=== PATIENT | female | born 1935 | race Caucasian/White ===

== ENCOUNTER 2018-02-25 15:58 | Inpatient (IN) ==
[2018-02-25 17:12] LABS: Basophils % 0.3 % (0.0-0.8); Eosinophils % 0.1 % (0.00-10.9); Hematocrit 40.5 VOL% (35.7-47.0); Immature Granulocytes % 0.3 %; Immature Granulocytes Absolute 0.02 #; Lymphocytes # 0.6 10*3/uL (1.4-4.0); Lymphocytes % 7.9 % (21.3-54.2); Mean Corpuscular HGB Conc 34.6 GM/DL (32-36); Mean Corpuscular Hemoglobin 33 PG (27-34); Mean Corpuscular Volume 96.7 FL (87-102); Mean Platelet Volume 9.9 FL (9.6-12.0); Monocytes # 0.7 10*3/uL (0.11-0.8); Monocytes % 8.6 % (1.7-12.7); Neutrophils # 6.6 10*3/uL (1.4-7.4); Neutrophils % 82.8 % (38.7-73.9); Platelet Count 123 T/CUMM (130-400); Red Blood Count 4.19 MC/CUMM (3.8-5.5); Red Cell Distribution Width 11.9 % (9.3-17.3)
[2018-02-25 17:25] LABS: PT Patient Result 10.2 SECS
[2018-02-25 17:36] LABS: Albumin 3.2 G/DL (3.4-5.0); Bilirubin,Total 0.5 MG/DL (0.2-1.0); Calcium 9.4 MG/DL (8.5-10.1); Osmolality,Calculated 275.7 MOS/KG (273-304); Potassium 3.5 MMOL/L (3.5-5.1)
[2018-02-25 17:47] LABS: Band Neutrophils 9 % (0-10); Lymphocytes 9 % (20-55); Platelet Estimate Adequate; Segmented Neutrophils 69 % (50-85); Total Cells Counted 100
[2018-02-25 17:59] LABS: Apearance,Urine Slightly Hazy (Clear); Bilirubin,Urine Negative (Negative); Blood, Urine Negative (Negative); Glucose,Urine (UA) Negative (Negative); Ketones,Urine 20 mg/dL (Negative); Mucus,Urine Occasional /LPF (Occasional); Nitrite,Urine Negative (Negative); Protein,Urine 100 MG/DL; RBC,Urine 3 /HPF (0-4); Urine Color Amber (Yellow); Urine Specific Gravity 1.023 (1.001-1.035); Urine Urobilinogen < 2.0 EU/DL (0.2-1.0); WBC,Urine 1 /HPF (0-6)
[2018-02-26 05:13] LABS: Basophils % 0.3 % (0.0-0.8); Eosinophils % 0.1 % (0.00-10.9); Hematocrit 35.5 VOL% (35.7-47.0); Hemoglobin 12.4 GM/DL (12.0-16.0); Immature Granulocytes % 0.1 %; Immature Granulocytes Absolute 0.01 #; Lymphocytes # 0.7 10*3/uL (1.4-4.0); Lymphocytes % 7.7 % (21.3-54.2); Mean Corpuscular HGB Conc 34.9 GM/DL (32-36); Mean Corpuscular Hemoglobin 33 PG (27-34); Mean Corpuscular Volume 94.4 FL (87-102); Mean Platelet Volume 10.2 FL (9.6-12.0); Monocytes # 0.9 10*3/uL (0.11-0.8); Monocytes % 9.7 % (1.7-12.7); Neutrophils # 7.3 10*3/uL (1.4-7.4); Neutrophils % 82.1 % (38.7-73.9); Platelet Count 128 T/CUMM (130-400); Red Blood Count 3.76 MC/CUMM (3.8-5.5); White Blood Count 8.8 T/CUMM (4-12)
[2018-02-26 05:35] LABS: Calcium 8.4 MG/DL (8.5-10.1); Osmolality,Calculated 272.8 MOS/KG (273-304); Potassium 2.9 MMOL/L (3.5-5.1)
[2018-02-26 05:45] LABS: Band Neutrophils 9 % (0-10); Hypochromasia 1+; Lymphocytes 10 % (20-55); Ovalocytes Slight; Platelet Estimate Normal; Segmented Neutrophils 73 % (50-85); Total Cells Counted 100
[2018-02-27 05:53] LABS: Basophils % 0.2 % (0.0-0.8); Eosinophils % 0.8 % (0.00-10.9); Hematocrit 33.1 VOL% (35.7-47.0); Hemoglobin 11.8 GM/DL (12.0-16.0); Immature Granulocytes % 0.4 %; Immature Granulocytes Absolute 0.02 #; Lymphocytes # 0.9 10*3/uL (1.4-4.0); Lymphocytes % 17.5 % (21.3-54.2); Mean Corpuscular HGB Conc 35.6 GM/DL (32-36); Mean Corpuscular Hemoglobin 34 PG (27-34); Mean Platelet Volume 10.1 FL (9.6-12.0); Monocytes # 0.5 10*3/uL (0.11-0.8); Monocytes % 10.5 % (1.7-12.7); Neutrophils # 3.6 10*3/uL (1.4-7.4); Neutrophils % 70.6 % (38.7-73.9); Platelet Count 135 T/CUMM (130-400); Red Blood Count 3.52 MC/CUMM (3.8-5.5)
[2018-02-27 06:14] LABS: Albumin 2.6 G/DL (3.4-5.0); Bilirubin,Total 0.4 MG/DL (0.2-1.0); Calcium 8.3 MG/DL (8.5-10.1); Osmolality,Calculated 278.3 MOS/KG (273-304); Potassium 3.6 MMOL/L (3.5-5.1); Total Protein 5.6 G/DL (6.4-8.3)
[2018-02-27 09:35] VITALS: BP 109/53
== END 2018-02-27 11:45 | disposition home or self-care (01) | DRG 566 ==
LOC: EDBD → EDUNIT# → N.ED 15:58 → N.EDINP 19:27 → N.4E 20:54
PROVIDERS: ADMIT Internal Medicine; ATTEND Internal Medicine

== ENCOUNTER 2019-04-08 18:38 | Inpatient (IN) ==
[2019-04-08 19:23] LABS: Basophils % 0.1 % (0.0-0.8); Hematocrit 22.8 VOL% (35.7-47.0); Hemoglobin 7.2 GM/DL (12.0-16.0); Immature Granulocytes % 0.1 %; Immature Granulocytes Absolute 0.01 #; Lymphocytes # 0.5 10*3/uL (1.4-4.0); Lymphocytes % 7.1 % (21.3-54.2); Mean Corpuscular HGB Conc 31.6 GM/DL (32-36); Mean Platelet Volume 9.8 FL (9.6-12.0); Monocytes % 5.6 % (1.7-12.7); Neutrophils % 87.1 % (38.7-73.9); Platelet Count 149 T/CUMM (130-400); Red Blood Count 2.28 MC/CUMM (3.8-5.5); Red Cell Distribution Width 12.4 % (9.3-17.3); White Blood Count 7.4 T/CUMM (4-12)
[2019-04-08 19:42] LABS: INR 1.3; PT Patient Result 14.3 SECS (9.6-12.2)
[2019-04-08 21:45] LABS: Calcium 9.1 MG/DL (8.5-10.1)
[2019-04-08 21:47] LABS: Albumin 2.8 G/DL (3.4-5.0); Osmolality,Calculated 281.3 MOS/KG (273-304)
[2019-04-08 21:50] LABS: Apearance,Urine CLEAR (Clear); Bilirubin,Urine Negative (Negative); Blood, Urine Negative (Negative); Glucose,Urine (UA) Negative (Negative); Ketones,Urine 80 mg/dL (Negative); Mucus,Urine Occasional /LPF (Occasional); Nitrite,Urine Negative (Negative); Protein,Urine 30 MG/DL; RBC,Urine 4 /HPF (0-4); Squamous Epithelial Cell,Urine Occasional /HPF (0-10); Urine Color Yellow (Yellow); Urine Specific Gravity 1.018 (1.001-1.035); Urine Urobilinogen < 2.0 EU/DL (0.2-1.0); WBC,Urine 3 /HPF (0-6)
[2019-04-08 21:51] LABS: Bilirubin,Total 0.4 MG/DL (0.2-1.0)
[2019-04-09] MEDS ORDERED: BISACODYL 5 MG TABLET PO PRN (00:10)
[2019-04-09] MEDS ORDERED: ONDANSETRON 4 MG/2 ML VIAL IV PRN (00:10)
[2019-04-09] MEDS ORDERED: guaiFENesin/DM ER 600-30 MG TABLET PO PRN (00:10)
[2019-04-09] MEDS ORDERED: diphenhydrAMINE CAP 25 MG CAPSULE PO PRN (00:10)
[2019-04-09] MEDS ORDERED: SODIUM CHLORIDE 0.9% 1,000 ML IV PRN (00:10)
[2019-04-09] MEDS ORDERED: NICOTINE 21 MG/24 HR PATCH TRANSDERM PRN (00:10)
[2019-04-09] MEDS: SODIUM CHLORIDE 0.9% 1,000 ML IV SCH ×3 (03:06→16:08)
[2019-04-09] MEDS: FAMOTIDINE 20 MG/2 ML VIAL IV SCH ×3 (03:07→22:18)
[2019-04-09] MEDS: ACETAMINOPHEN 325 MG TABLET PO PRN (03:11)
[2019-04-09] MEDS ORDERED: LIOTHYRONINE 25 MCG TABLET PO SCH (06:30)
[2019-04-09] MEDS ORDERED: LEVOTHYROXINE 137 MCG TABLET PO SCH (06:30)
[2019-04-09] MEDS: SOTALOL 80 MG TABLET PO SCH ×2 (09:39→22:19)
[2019-04-09] MEDS: PROPRANOLOL 40 MG TABLET PO SCH (09:39)
[2019-04-09] MEDS: ENOXAPARIN 40 MG/0.4 ML SYRINGE SUBCUT SCH ×2 (09:39→10:45)
[2019-04-09] MEDS: carBAMazepine 200 MG TABLET PO SCH ×2 (09:59→18:21)
[2019-04-09 10:00] LABS: Basophils % 0.2 % (0.0-0.8); Eosinophils % 0.4 % (0.00-10.9); Hematocrit 36.5 VOL% (35.7-47.0); Immature Granulocytes % 0.4 %; Immature Granulocytes Absolute 0.04 #; Lymphocytes # 1.1 10*3/uL (1.4-4.0); Lymphocytes % 12.4 % (21.3-54.2); Mean Corpuscular HGB Conc 33.2 GM/DL (32-36); Mean Corpuscular Volume 97.3 FL (87-102); Mean Platelet Volume 10.1 FL (9.6-12.0); Neutrophils % 78.6 % (38.7-73.9); Red Cell Distribution Width 13.2 % (9.3-17.3)
[2019-04-09 10:04] LABS: Red Blood Count 3.75 MC/CUMM (3.8-5.5)
[2019-04-09 10:05] LABS: Hemoglobin 12.1 GM/DL (12.0-16.0)
[2019-04-09 10:06] LABS: Platelet Count 213 T/CUMM (130-400)
[2019-04-09 10:27] LABS: % Iron Saturation 37.8 % (18-50); Ferritin 171.5 ng/ml (8-252)
[2019-04-09 10:29] LABS: Free T4 (Free Thyroxine) 1.44 NG/DL (0.76-1.46)
[2019-04-09] MEDS ORDERED: INFLUENZA VIRUS VACCINE 0.5 ML SYRINGE IM ONE (10:30)
[2019-04-09 10:34] LABS: Albumin 2.5 G/DL (3.4-5.0); Bilirubin,Total 0.6 MG/DL (0.2-1.0); Calcium 8.6 MG/DL (8.5-10.1); Osmolality,Calculated 283.1 MOS/KG (273-304); Total Protein 6.4 G/DL (6.4-8.3)
[2019-04-09 10:36] LABS: Troponin I 0.189 NG/ML (0.00-0.045)
[2019-04-09] MEDS: POTASSIUM CHLORIDE RIDER 10 MEQ in PREMIX 1 EACH IV PRN ×5 (10:44→23:31)
[2019-04-09 11:03] LABS: Sedimentation Rate-Westergren 90 MM/HR (0-30)
[2019-04-09 13:18] LABS: Hemoglobin 13.3 GM/DL (12.0-16.0)
[2019-04-09 17:20] LABS: Troponin I 0.228 NG/ML (0.00-0.045)
[2019-04-09] MEDS: cycloSPORINE OPH EMUL 1 VIAL BOTH EYES SCH (22:19)
[2019-04-09] MEDS: SIMVASTATIN 40 MG TABLET PO SCH (22:19)
[2019-04-09] MEDS: PANTOPRAZOLE 40 MG TABLET PO SCH (22:19)
[2019-04-09] MEDS: AMITRIPTYLINE 100 MG TABLET PO SCH (22:25)
[2019-04-10] MEDS: POTASSIUM CHLORIDE RIDER 10 MEQ in PREMIX 1 EACH IV PRN ×2 (00:32→08:17)
[2019-04-10 06:16] LABS: Basophils % 0.3 % (0.0-0.8); Eosinophils # 0.1 10*3/uL (0.0-0.87); Hematocrit 38.4 VOL% (35.7-47.0); Hemoglobin 12.6 GM/DL (12.0-16.0); Immature Granulocytes % 0.4 %; Immature Granulocytes Absolute 0.04 #; Lymphocytes # 1.1 10*3/uL (1.4-4.0); Lymphocytes % 11.1 % (21.3-54.2); Mean Corpuscular HGB Conc 32.8 GM/DL (32-36); Mean Corpuscular Volume 94.3 FL (87-102); Mean Platelet Volume 11.3 FL (9.6-12.0); Monocytes % 9.9 % (1.7-12.7); Neutrophils % 77.3 % (38.7-73.9); Platelet Count 221 T/CUMM (130-400); Red Blood Count 4.07 MC/CUMM (3.8-5.5); Red Cell Distribution Width 14.1 % (9.3-17.3); White Blood Count 9.9 T/CUMM (4-12)
[2019-04-10 06:39] LABS: Albumin 2.4 G/DL (3.4-5.0); Bilirubin,Total 0.9 MG/DL (0.2-1.0); Calcium 8.8 MG/DL (8.5-10.1); Total Protein 6.2 G/DL (6.4-8.3)
[2019-04-10 07:15] LABS: Troponin I 0.276 NG/ML (0.00-0.045)
[2019-04-10 07:19] LABS: Hemoglobin A1 (Alkaline) 97.1 % (96.5-98.5); Hemoglobin A2 (Alkaline) 2.9 % (1.5-3.5)
[2019-04-10] MEDS: FAMOTIDINE 20 MG/2 ML VIAL IV SCH ×2 (08:15→20:25)
[2019-04-10] MEDS: cycloSPORINE OPH EMUL 1 VIAL BOTH EYES SCH ×2 (08:15→20:35)
[2019-04-10] MEDS: carBAMazepine 200 MG TABLET PO SCH ×2 (08:16→18:54)
[2019-04-10] MEDS: PANTOPRAZOLE 40 MG TABLET PO SCH ×2 (08:16→20:25)
[2019-04-10] MEDS: PROPRANOLOL 40 MG TABLET PO SCH (08:16)
[2019-04-10] MEDS: SOTALOL 80 MG TABLET PO SCH ×2 (08:16→20:24)
[2019-04-10] MEDS: SODIUM CHLORIDE 0.9% 1,000 ML IV SCH ×3 (10:46→17:35)
[2019-04-10] MEDS ORDERED: TUBERCULIN SKIN TEST 0.1 ML SYRINGE INTRADERM ONE (15:47)
[2019-04-10 16:58] LABS: Folate 10.2 NG/ML (5.4-24.0); Vitamin B12 1015 PG/ML (211-911)
[2019-04-10] MEDS: ACETAMINOPHEN 325 MG TABLET PO PRN (20:23)
[2019-04-10] MEDS: SIMVASTATIN 40 MG TABLET PO SCH (20:25)
[2019-04-10] MEDS: AMITRIPTYLINE 100 MG TABLET PO SCH (20:25)
[2019-04-11 05:20] LABS: Basophils % 0.3 % (0.0-0.8); Eosinophils # 0.2 10*3/uL (0.0-0.87); Eosinophils % 2.6 % (0.00-10.9); Hematocrit 35.2 VOL% (35.7-47.0); Hemoglobin 11.4 GM/DL (12.0-16.0); Immature Granulocytes % 0.4 %; Immature Granulocytes Absolute 0.03 #; Lymphocytes # 1.3 10*3/uL (1.4-4.0); Lymphocytes % 18.6 % (21.3-54.2); Mean Corpuscular HGB Conc 32.4 GM/DL (32-36); Mean Corpuscular Volume 94.6 FL (87-102); Mean Platelet Volume 10.2 FL (9.6-12.0); Monocytes % 11.7 % (1.7-12.7); Neutrophils % 66.4 % (38.7-73.9); Platelet Count 190 T/CUMM (130-400); Red Blood Count 3.72 MC/CUMM (3.8-5.5); Red Cell Distribution Width 13.3 % (9.3-17.3); White Blood Count 6.9 T/CUMM (4-12)
[2019-04-11 05:42] LABS: Calcium 8.2 MG/DL (8.5-10.1); Osmolality,Calculated 282.1 MOS/KG (273-304)
[2019-04-11] MEDS: SOTALOL 80 MG TABLET PO SCH ×2 (11:35→20:57)
[2019-04-11] MEDS: PROPRANOLOL 40 MG TABLET PO SCH (11:35)
[2019-04-11] MEDS: PANTOPRAZOLE 40 MG TABLET PO SCH ×2 (11:35→20:58)
[2019-04-11] MEDS: carBAMazepine 200 MG TABLET PO SCH ×2 (11:36→20:57)
[2019-04-11] MEDS: FAMOTIDINE 20 MG/2 ML VIAL IV SCH ×2 (11:37→21:03)
[2019-04-11 12:19] LABS: Hematocrit 38.8 VOL% (35.7-47.0); Hemoglobin 12.8 GM/DL (12.0-16.0)
[2019-04-11] MEDS: AMITRIPTYLINE 100 MG TABLET PO SCH (20:58)
[2019-04-11] MEDS: SIMVASTATIN 40 MG TABLET PO SCH (20:58)
[2019-04-12] MEDS: SODIUM CHLORIDE 0.9% 1,000 ML IV SCH ×2 (07:20→10:39)
[2019-04-12] MEDS: PANTOPRAZOLE 40 MG TABLET PO SCH ×2 (09:23→21:12)
[2019-04-12] MEDS: FAMOTIDINE 20 MG/2 ML VIAL IV SCH (09:23)
[2019-04-12] MEDS: carBAMazepine 200 MG TABLET PO SCH ×2 (09:23→21:12)
[2019-04-12] MEDS: PROPRANOLOL 40 MG TABLET PO SCH (09:23)
[2019-04-12] MEDS: SOTALOL 80 MG TABLET PO SCH ×2 (09:23→21:12)
[2019-04-12] MEDS: AMITRIPTYLINE 100 MG TABLET PO SCH (21:12)
[2019-04-12] MEDS: SIMVASTATIN 40 MG TABLET PO SCH (21:12)
[2019-04-12] MEDS: cycloSPORINE OPH EMUL 1 VIAL BOTH EYES SCH (21:13)
[2019-04-13 05:57] LABS: Basophils % 0.3 % (0.0-0.8); Eosinophils # 0.1 10*3/uL (0.0-0.87); Eosinophils % 1.7 % (0.00-10.9); Hematocrit 38.3 VOL% (35.7-47.0); Hemoglobin 12.4 GM/DL (12.0-16.0); Immature Granulocytes % 0.5 %; Immature Granulocytes Absolute 0.04 #; Lymphocytes # 1.2 10*3/uL (1.4-4.0); Lymphocytes % 15.4 % (21.3-54.2); Mean Corpuscular HGB Conc 32.4 GM/DL (32-36); Mean Platelet Volume 9.5 FL (9.6-12.0); Monocytes % 13.3 % (1.7-12.7); Neutrophils % 68.8 % (38.7-73.9); Platelet Count 195 T/CUMM (130-400); Red Blood Count 3.99 MC/CUMM (3.8-5.5); Red Cell Distribution Width 12.7 % (9.3-17.3); White Blood Count 7.6 T/CUMM (4-12)
[2019-04-13] MEDS: SOTALOL 80 MG TABLET PO SCH ×2 (08:54→21:25)
[2019-04-13] MEDS: PROPRANOLOL 40 MG TABLET PO SCH (08:54)
[2019-04-13] MEDS: PANTOPRAZOLE 40 MG TABLET PO SCH ×2 (08:54→21:26)
[2019-04-13] MEDS: carBAMazepine 200 MG TABLET PO SCH ×2 (08:54→21:25)
[2019-04-13] MEDS: METHOCARBAMOL 500 MG TABLET PO SCH ×3 (08:55→21:25)
[2019-04-13] MEDS: cycloSPORINE OPH EMUL 1 VIAL BOTH EYES SCH ×2 (08:55→21:27)
[2019-04-13] MEDS: DICLOFENAC 1% GEL 100 GM TUBE TOP SCH ×4 (15:39→21:27)
[2019-04-13] MEDS ORDERED: MIRTAZAPINE 15 MG TABLET PO SCH (21:00)
[2019-04-13] MEDS: SIMVASTATIN 40 MG TABLET PO SCH (21:26)
[2019-04-13] MEDS: AMITRIPTYLINE 100 MG TABLET PO SCH (21:26)
[2019-04-14] MEDS: carBAMazepine 200 MG TABLET PO SCH (08:56)
[2019-04-14] MEDS: PANTOPRAZOLE 40 MG TABLET PO SCH (08:56)
[2019-04-14] MEDS: SOTALOL 80 MG TABLET PO SCH (08:57)
[2019-04-14] MEDS: PROPRANOLOL 40 MG TABLET PO SCH (08:57)
[2019-04-14] MEDS: METHOCARBAMOL 500 MG TABLET PO SCH (08:57)
[2019-04-14] MEDS: DICLOFENAC 1% GEL 100 GM TUBE TOP SCH ×2 (09:04→12:43)
[2019-04-14] MEDS: cycloSPORINE OPH EMUL 1 VIAL BOTH EYES SCH (09:05)
[2019-04-14 11:57] VITALS: BP 103/54
== END 2019-04-14 14:01 | disposition swing bed (61) | DRG 644 ==
LOC: EDUNIT# → EDBD → N.EDINP 18:38 → N.ED 18:38 → N.TELES 04-09 01:14 → SUATTDRO 04-09 13:44 → N.5E 04-12 11:11
PROVIDERS: ADMIT Internal Medicine; ATTEND Internal Medicine

== ENCOUNTER 2020-09-25 09:56 | Observation (INO) ==
[2020-09-25] MEDS ORDERED: NITROGLYCERIN SL 0.4 MG TABLET SL PRN (10:23)
[2020-09-25] MEDS ORDERED: ASPIRIN 325 MG TABLET PO STA (10:23)
[2020-09-25] MEDS ORDERED: ASPIRIN 325 MG TABLET ONE (10:26)
[2020-09-25 11:00] LABS: Basophils % 0.4 % (0.0-0.8); Eosinophils % 1.7 % (0.00-10.9); Hematocrit 36.1 VOL% (35.7-47.0); Hemoglobin 11.6 GM/DL (12.0-16.0); Immature Granulocytes % 0.3 %; Mean Corpuscular HGB Conc 32.1 GM/DL (32-36); Mean Platelet Volume 9.6 FL (9.6-12.0); Monocytes % 7.2 % (1.7-12.7); Neutrophils % 76.4 % (38.7-73.9); Platelet Count 239 T/CUMM (130-400); Red Blood Count 3.76 MC/CUMM (3.8-5.5); Red Cell Distribution Width 12.6 % (9.3-17.3); White Blood Count 7.8 T/CUMM (4-12)
[2020-09-25 11:01] LABS: Eosinophils # 0.1 10*3/uL (0.0-0.87); Immature Granulocytes Absolute 0.02 #; Lymphocytes # 1.1 10*3/uL (1.4-4.0)
[2020-09-25 11:15] LABS: PT Patient Result 10.9 SECS (9.8-11.9); Partial Thromboplastin Time 24.5 SECS (23.9-33.8)
[2020-09-25 11:20] LABS: Calcium 9.2 MG/DL (8.5-10.1); Osmolality,Calculated 278.7 MOS/KG (273-304); Potassium 4.4 MMOL/L (3.5-5.1)
[2020-09-25] MEDS ORDERED: DEXTROSE 50% 25 GM/50 ML VIAL IV PRN (13:30)
[2020-09-25] MEDS ORDERED: GLUCAGON 1 MG VIAL IM PRN (13:30)
[2020-09-25] MEDS ORDERED: hydrALAZINE 20 MG/1 ML VIAL IV PRN (14:18)
[2020-09-25] MEDS ORDERED: PANTOPRAZOLE 20 MG TABLET PO SCH (14:30)
[2020-09-25] MEDS: ENOXAPARIN 40 MG/0.4 ML SYRINGE SUBCUT SCH (15:42)
[2020-09-25] MEDS: SOTALOL 80 MG TABLET PO SCH ×2 (15:42→21:10)
[2020-09-25] MEDS: LOSARTAN 25 MG TABLET PO SCH (15:42)
[2020-09-25] MEDS ORDERED: carBAMazepine 200 MG TABLET PO SCH ×2 (19:00→21:00)
[2020-09-25] MEDS ORDERED: SIMVASTATIN 40 MG TABLET PO SCH (21:00)
[2020-09-25] MEDS ORDERED: AMITRIPTYLINE 50 MG TABLET PO SCH (21:00)
[2020-09-25] MEDS: PANTOPRAZOLE 40 MG TABLET PO SCH (21:11)
[2020-09-25] MEDS: cycloSPORINE OPH EMUL 1 VIAL BOTH EYES SCH (21:12)
[2020-09-26] MEDS ORDERED: diphenhydrAMINE CAP 25 MG CAPSULE PO ONE (04:51)
[2020-09-26 05:09] LABS: Free T4 (Free Thyroxine) 1.66 NG/DL (0.76-1.46)
[2020-09-26 05:41] LABS: Basophils % 0.5 % (0.0-0.8); Eosinophils # 0.1 10*3/uL (0.0-0.87); Eosinophils % 1.8 % (0.00-10.9); Hematocrit 33.5 VOL% (35.7-47.0); Hemoglobin 10.9 GM/DL (12.0-16.0); Immature Granulocytes % 0.3 %; Immature Granulocytes Absolute 0.02 #; Lymphocytes # 1.6 10*3/uL (1.4-4.0); Lymphocytes % 23.4 % (21.3-54.2); Mean Corpuscular HGB Conc 32.5 GM/DL (32-36); Mean Corpuscular Volume 95.7 FL (87-102); Mean Platelet Volume 10.7 FL (9.6-12.0); Monocytes % 10.6 % (1.7-12.7); Neutrophils % 63.4 % (38.7-73.9); Platelet Count 222 T/CUMM (130-400); Red Cell Distribution Width 12.9 % (9.3-17.3); White Blood Count 6.6 T/CUMM (4-12)
[2020-09-26 05:54] LABS: Risk Ratio 2.61; VLDL CHOLESTEROL 27.2 MG/DL
[2020-09-26 05:55] LABS: Albumin 2.8 G/DL (3.4-5.0); Bilirubin,Total 0.4 MG/DL (0.2-1.0); Calcium 9.1 MG/DL (8.5-10.1); Osmolality,Calculated 281.3 MOS/KG (273-304); Potassium 3.7 MMOL/L (3.5-5.1); Total Protein 6.7 G/DL (5.0-7.5)
[2020-09-26] MEDS ORDERED: LEVOTHYROXINE 125 MCG TABLET PO SCH (07:00)
[2020-09-26] MEDS: cycloSPORINE OPH EMUL 1 VIAL BOTH EYES SCH (09:00)
[2020-09-26] MEDS ORDERED: PROPRANOLOL 20 MG TABLET PO SCH (09:00)
[2020-09-26] MEDS ORDERED: CALCIUM (CARBONATE) 600 MG TABLET PO SCH (09:00)
[2020-09-26] MEDS: LOSARTAN 25 MG TABLET PO SCH (09:00)
[2020-09-26] MEDS ORDERED: carBAMazepine 200 MG TABLET PO SCH (09:00)
[2020-09-26] MEDS: SOTALOL 80 MG TABLET PO SCH (09:00)
[2020-09-26] MEDS ORDERED: ASPIRIN CHEW 81 MG TABLET PO SCH (09:00)
[2020-09-26] MEDS: PANTOPRAZOLE 40 MG TABLET PO SCH (09:01)
[2020-09-26 11:51] VITALS: BP 135/61
[2020-09-26] MEDS: ENOXAPARIN 40 MG/0.4 ML SYRINGE SUBCUT SCH (13:21)
== END 2020-09-26 14:33 | disposition home or self-care (01) ==
LOC: EDUNIT# → EDBD → N.ED 09:56 → N.EDINP 09:56 → N.TELES 13:49
PROVIDERS: ADMIT Internal Medicine; ATTEND Internal Medicine

== ENCOUNTER 2020-12-06 10:20 | Inpatient (IN) ==
[2020-12-06 13:09] LABS: Bilirubin,Urine Negative (Negative); Blood, Urine Negative (Negative); Glucose,Urine (UA) Negative (Negative); Ketones,Urine 80 mg/dL (Negative); Mucus,Urine Few /LPF (Occasional); Nitrite,Urine Negative (Negative); Protein,Urine 30 MG/DL; RBC,Urine 2 /HPF (0-4); Squamous Epithelial Cell,Urine Occasional /HPF (0-10); Urine Appearance CLEAR (Clear); Urine Color Yellow (Yellow); Urine Specific Gravity 1.025 (1.001-1.035); Urine Urobilinogen < 2.0 EU/DL (0.2-1.0)
[2020-12-06 13:26] LABS: Basophils % 0.2 % (0.0-0.8); Eosinophils % 0.2 % (0.00-10.9); Hematocrit 30.4 VOL% (35.7-47.0); Immature Granulocytes % 0.6 %; Immature Granulocytes Absolute 0.11 #; Lymphocytes # 1.5 10*3/uL (1.4-4.0); Lymphocytes % 8.3 % (21.3-54.2); Mean Corpuscular HGB Conc 32.9 GM/DL (32-36); Mean Corpuscular Volume 95.6 FL (87-102); Mean Platelet Volume 9.4 FL (9.6-12.0); Monocytes % 7.2 % (1.7-12.7); Neutrophils % 83.5 % (38.7-73.9); Platelet Count 320 T/CUMM (130-400); Red Blood Count 3.18 MC/CUMM (3.8-5.5); Red Cell Distribution Width 12.9 % (9.3-17.3); White Blood Count 17.9 T/CUMM (4-12)
[2020-12-06 13:44] LABS: Alanine Aminotransferase 13 U/L (13-56); Albumin 2.4 G/DL (3.4-5.0); Alkaline Phosphatase 30 U/L (45-117); Aspartate Amino Transferase 14 U/L (0-37); Bilirubin,Total < 0.39 MG/DL (0.2-1.0); Blood Urea Nitrogen 11 MG/DL (7-18); Calcium 9.5 MG/DL (8.5-10.1); Carbon Dioxide 26 MMOL/L (21-32); Estimated Glom Filtration Rate 81 ML/MIN; Glucose 111 MG/DL (74-106); Osmolality,Calculated 272.8 MOS/KG (273-304); Sodium 137 MMOL/L (136-145); Total Protein 7.1 G/DL (6.4-8.2)
[2020-12-06] MEDS ORDERED: cefTRIAXone 1,000 MG in SODIUM CHLORIDE 0.9% 100 ML IV STA (13:52)
[2020-12-06] MEDS ORDERED: ONDANSETRON 4 MG/2 ML VIAL IV PRN (14:54)
[2020-12-06] MEDS ORDERED: GLUCAGON 1 MG VIAL IM PRN (14:54)
[2020-12-06] MEDS ORDERED: DEXTROSE 50% 25 GM/50 ML VIAL IV PRN (14:54)
[2020-12-06] MEDS ORDERED: tiZANidine 4 MG TABLET PO PRN (15:01)
[2020-12-06] MEDS: cefTRIAXone 1,000 MG in SODIUM CHLORIDE 0.9% 100 ML IV SCH (16:07)
[2020-12-06] MEDS: AZITHROMYCIN INJ 500 MG in SODIUM CHLORIDE 0.9% 250 ML IV SCH (16:08)
[2020-12-06] MEDS: ASPIRIN CHEW 81 MG TABLET PO SCH (16:14)
[2020-12-06] MEDS: PANTOPRAZOLE 40 MG TABLET PO SCH (16:15)
[2020-12-06] MEDS: ALBUTEROL/IPRATROPIUM 3 ML NEB RESP TX SCH (19:39)
[2020-12-06] MEDS: cycloSPORINE OPH EMUL 1 VIAL BOTH EYES SCH (20:51)
[2020-12-06] MEDS: carBAMazepine 200 MG TABLET PO SCH (20:51)
[2020-12-06] MEDS: SIMVASTATIN 40 MG TABLET PO SCH (20:51)
[2020-12-06] MEDS: SOTALOL 80 MG TABLET PO SCH (20:51)
[2020-12-06] MEDS: TOPIRAMATE 25 MG TABLET PO SCH (20:51)
[2020-12-06] MEDS: AMITRIPTYLINE 50 MG TABLET PO SCH (20:51)
[2020-12-06] MEDS: SODIUM CHLORIDE 0.45% 1,000 ML IV SCH (20:55)
[2020-12-07] MEDS: ALBUTEROL/IPRATROPIUM 3 ML NEB RESP TX SCH ×4 (00:12→20:48)
[2020-12-07] MEDS: SODIUM CHLORIDE 0.45% 1,000 ML IV SCH ×3 (00:53→08:52)
[2020-12-07 05:51] LABS: Basophils % 0.1 % (0.0-0.8); Eosinophils # 0.1 10*3/uL (0.0-0.87); Eosinophils % 0.3 % (0.00-10.9); Hematocrit 29.2 VOL% (35.7-47.0); Hemoglobin 9.8 GM/DL (12.0-16.0); Immature Granulocytes % 0.6 %; Immature Granulocytes Absolute 0.09 #; Lymphocytes # 1.2 10*3/uL (1.4-4.0); Lymphocytes % 7.7 % (21.3-54.2); Mean Corpuscular HGB Conc 33.6 GM/DL (32-36); Mean Corpuscular Volume 93.9 FL (87-102); Monocytes % 9.1 % (1.7-12.7); Neutrophils % 82.2 % (38.7-73.9); Platelet Count 294 T/CUMM (130-400); Red Blood Count 3.11 MC/CUMM (3.8-5.5); Red Cell Distribution Width 13.1 % (9.3-17.3); White Blood Count 15.8 T/CUMM (4-12)
[2020-12-07] MEDS: IBUPROFEN 600 MG TABLET PO PRN ×2 (06:07→17:47)
[2020-12-07 06:39] LABS: Blood Urea Nitrogen 7 MG/DL (7-18); Carbon Dioxide 25 MMOL/L (21-32); Estimated Glom Filtration Rate 86 ML/MIN; Glucose 94 MG/DL (74-106); Potassium 3.6 MMOL/L (3.5-5.1); Sodium 136 MMOL/L (136-145); Thyroid Stimulating Hormone < 0.005 uIU/ml (0.358-3.74)
[2020-12-07] MEDS ORDERED: LEVOTHYROXINE 137 MCG TABLET PO SCH (07:00)
[2020-12-07] MEDS: TOPIRAMATE 25 MG TABLET PO SCH ×2 (08:31→21:47)
[2020-12-07] MEDS: carBAMazepine 200 MG TABLET PO SCH ×2 (08:31→21:47)
[2020-12-07] MEDS: LIOTHYRONINE 25 MCG TABLET PO SCH (08:35)
[2020-12-07] MEDS: ASPIRIN CHEW 81 MG TABLET PO SCH (08:36)
[2020-12-07] MEDS: cycloSPORINE OPH EMUL 1 VIAL BOTH EYES SCH ×2 (08:36→21:48)
[2020-12-07] MEDS: cefTRIAXone 1,000 MG in SODIUM CHLORIDE 0.9% 100 ML IV SCH (08:36)
[2020-12-07] MEDS: SOTALOL 80 MG TABLET PO SCH ×2 (08:36→21:47)
[2020-12-07] MEDS: PANTOPRAZOLE 40 MG TABLET PO SCH (08:36)
[2020-12-07] MEDS: AZITHROMYCIN INJ 500 MG in SODIUM CHLORIDE 0.9% 250 ML IV SCH (15:21)
[2020-12-07] MEDS: AMITRIPTYLINE 50 MG TABLET PO SCH (21:47)
[2020-12-07] MEDS: SIMVASTATIN 40 MG TABLET PO SCH (21:47)
[2020-12-07] MEDS: ACETAMINOPHEN 325 MG TABLET PO PRN (21:55)
[2020-12-08] MEDS: ALBUTEROL/IPRATROPIUM 3 ML NEB RESP TX SCH ×4 (01:40→20:22)
[2020-12-08 05:20] LABS: Basophils % 0.2 % (0.0-0.8); Eosinophils # 0.1 10*3/uL (0.0-0.87); Eosinophils % 1.2 % (0.00-10.9); Hematocrit 27.3 VOL% (35.7-47.0); Hemoglobin 9.1 GM/DL (12.0-16.0); Immature Granulocytes % 0.5 %; Immature Granulocytes Absolute 0.05 #; Lymphocytes # 0.7 10*3/uL (1.4-4.0); Lymphocytes % 6.5 % (21.3-54.2); Mean Corpuscular HGB Conc 33.3 GM/DL (32-36); Mean Corpuscular Volume 93.8 FL (87-102); Mean Platelet Volume 9.9 FL (9.6-12.0); Monocytes % 9.2 % (1.7-12.7); Neutrophils % 82.4 % (38.7-73.9); Platelet Count 268 T/CUMM (130-400); Red Blood Count 2.91 MC/CUMM (3.8-5.5); Red Cell Distribution Width 12.9 % (9.3-17.3); White Blood Count 10.4 T/CUMM (4-12)
[2020-12-08 05:49] LABS: Calcium 8.6 MG/DL (8.5-10.1); Free T4 (Free Thyroxine) 1.52 NG/DL (0.76-1.46); Osmolality,Calculated 274.7 MOS/KG (273-304); Potassium 2.9 MMOL/L (3.5-5.1)
[2020-12-08] MEDS: SODIUM CHLORIDE 0.45% 1,000 ML IV SCH ×5 (06:13→23:20)
[2020-12-08] MEDS: LEVOTHYROXINE 200 MCG TABLET PO SCH (06:14)
[2020-12-08] MEDS: ACETAMINOPHEN 325 MG TABLET PO PRN (06:15)
[2020-12-08] MEDS ORDERED: LIOTHYRONINE 25 MCG TABLET PO SCH (06:30)
[2020-12-08] MEDS: SOTALOL 80 MG TABLET PO SCH ×2 (08:51→21:21)
[2020-12-08] MEDS: LIOTHYRONINE 25 MCG TABLET PO SCH (08:51)
[2020-12-08] MEDS: carBAMazepine 200 MG TABLET PO SCH ×2 (08:52→21:22)
[2020-12-08] MEDS: ASPIRIN CHEW 81 MG TABLET PO SCH (08:52)
[2020-12-08] MEDS: cefTRIAXone 1,000 MG in SODIUM CHLORIDE 0.9% 100 ML IV SCH (08:53)
[2020-12-08] MEDS: AZITHROMYCIN 250 MG TABLET PO SCH (08:53)
[2020-12-08] MEDS: PANTOPRAZOLE 40 MG TABLET PO SCH (08:53)
[2020-12-08] MEDS: TOPIRAMATE 25 MG TABLET PO SCH ×2 (08:53→21:28)
[2020-12-08] MEDS ORDERED: POTASSIUM CHLORIDE 20 MEQ TABLET PO ONE (09:00)
[2020-12-08] MEDS: cycloSPORINE OPH EMUL 1 VIAL BOTH EYES SCH ×2 (10:16→21:22)
[2020-12-08] MEDS: SIMVASTATIN 40 MG TABLET PO SCH (21:21)
[2020-12-08] MEDS: AMITRIPTYLINE 50 MG TABLET PO SCH (21:27)
[2020-12-09] MEDS: ALBUTEROL/IPRATROPIUM 3 ML NEB RESP TX SCH ×2 (00:33→07:37)
[2020-12-09 06:02] LABS: Calcium 8.5 MG/DL (8.5-10.1); Osmolality,Calculated 272.7 MOS/KG (273-304); Potassium 3.6 MMOL/L (3.5-5.1)
[2020-12-09] MEDS: LEVOTHYROXINE 200 MCG TABLET PO SCH (06:06)
[2020-12-09 07:31] VITALS: BP 141/82
[2020-12-09] MEDS: SODIUM CHLORIDE 0.45% 1,000 ML IV SCH (08:40)
[2020-12-09] MEDS: cefTRIAXone 1,000 MG in SODIUM CHLORIDE 0.9% 100 ML IV SCH (08:41)
[2020-12-09] MEDS: PANTOPRAZOLE 40 MG TABLET PO SCH (08:42)
[2020-12-09] MEDS: cycloSPORINE OPH EMUL 1 VIAL BOTH EYES SCH (08:42)
[2020-12-09] MEDS: TOPIRAMATE 25 MG TABLET PO SCH (08:42)
[2020-12-09] MEDS: LIOTHYRONINE 25 MCG TABLET PO SCH (08:42)
[2020-12-09] MEDS: AZITHROMYCIN 250 MG TABLET PO SCH (08:42)
[2020-12-09] MEDS: SOTALOL 80 MG TABLET PO SCH (08:42)
[2020-12-09] MEDS: ASPIRIN CHEW 81 MG TABLET PO SCH (08:42)
[2020-12-09] MEDS: carBAMazepine 200 MG TABLET PO SCH (08:43)
== END 2020-12-09 10:25 | disposition home health service (06) | DRG 981 ==
LOC: N.ED 10:20 → SUATTDRO 14:56 → N.EDINP 14:56 → N.5E 16:02
PROVIDERS: ADMIT Phlebology; ATTEND Internal Medicine

== ENCOUNTER 2021-08-15 19:41 | Inpatient (IN) ==
[2021-08-16 03:13] LABS: Basophils % 0.1 % (0.0-0.8); Hematocrit 35.8 VOL% (35.7-47.0); Hemoglobin 11.9 GM/DL (12.0-16.0); Immature Granulocytes % 0.4 %; Immature Granulocytes Absolute 0.06 #; Lymphocytes # 1.4 10*3/uL (1.4-4.0); Lymphocytes % 9.8 % (21.3-54.2); Mean Corpuscular HGB Conc 33.2 GM/DL (32-36); Mean Platelet Volume 11.9 FL (9.6-12.0); Monocytes % 6.8 % (1.7-12.7); Neutrophils % 82.9 % (38.7-73.9); Platelet Count 287 T/CUMM (130-400); Red Blood Count 3.81 MC/CUMM (3.8-5.5); Red Cell Distribution Width 14.3 % (9.3-17.3); White Blood Count 13.8 T/CUMM (4-12)
[2021-08-16 03:16] LABS: PT Patient Result 11.4 SECS (10.5-12.0)
[2021-08-16] MEDS ORDERED: ACETAMINOPHEN 500 MG TABLET PO STA (04:11)
[2021-08-16] MEDS ORDERED: DIPH/TET/ACEL PERT BOOSTER VACCINE 0.5 ML VIAL IM ONE (05:12)
[2021-08-16 05:33] LABS: Bilirubin,Total 0.5 MG/DL (0.20-1.00); Calcium 9.3 MG/DL (8.5-10.1); Osmolality,Calculated 284.5 MOS/KG (273-304); Potassium 3.8 MMOL/L (3.5-5.1); Total Protein 7.7 G/DL (6.4-8.2)
[2021-08-16 05:40] LABS: Bilirubin,Urine Negative (Negative); Blood, Urine Negative (Negative); Glucose,Urine (UA) Negative (Negative); Ketones,Urine 5 mg/dL (Negative); Nitrite,Urine Negative (Negative); Protein,Urine Negative; RBC,Urine 1 /HPF (0-4); Urine Appearance CLEAR (Clear); Urine Color Yellow (Yellow); Urine Urobilinogen < 2.0 EU/DL (<2.0)
[2021-08-16] MEDS ORDERED: cefTRIAXone 1,000 MG in SODIUM CHLORIDE 0.9% 100 ML IV STA (05:45)
[2021-08-16] MEDS ORDERED: SODIUM CHLORIDE 0.9% 500 ML IV STA (05:55)
[2021-08-16] MEDS ORDERED: GLUCAGON 1 MG VIAL IM PRN (07:42)
[2021-08-16] MEDS ORDERED: DEXTROSE 10% 25 GM/250 ML BAG IV PRN (07:42)
[2021-08-16] MEDS ORDERED: ONDANSETRON 4 MG/2 ML VIAL IV PRN (07:43)
[2021-08-16] MEDS ORDERED: ALBUTEROL 2.5 MG/3 ML NEB RESP TX PRN (07:44)
[2021-08-16] MEDS: SODIUM CHLORIDE 0.9% 1,000 ML IV SCH ×2 (08:27→16:48)
[2021-08-16] MEDS: ENOXAPARIN 40 MG/0.4 ML SYRINGE SUBCUT SCH (08:28)
[2021-08-16] MEDS: PIPERACILLIN/TAZOBACTAM 3,375 MG in SODIUM CHLORIDE 0.9% 100 ML IV SCH ×2 (08:50→16:49)
[2021-08-16 11:13] LABS: Free T4 (Free Thyroxine) 1.05 NG/DL (0.76-1.46); Thyroid Stimulating Hormone < 0.005 uIU/ml (0.358-3.74)
[2021-08-16] MEDS: PROPRANOLOL 40 MG TABLET PO SCH (16:50)
[2021-08-16] MEDS: ACETAMINOPHEN 325 MG TABLET PO PRN (17:07)
[2021-08-16] MEDS ORDERED: carBAMazepine 200 MG TABLET PO SCH (19:00)
[2021-08-16] MEDS: cycloSPORINE OPH EMUL 1 VIAL BOTH EYES SCH (21:04)
[2021-08-16] MEDS: PANTOPRAZOLE 40 MG TABLET PO SCH (21:05)
[2021-08-16] MEDS: SIMVASTATIN 40 MG TABLET PO SCH (21:06)
[2021-08-17] MEDS: PIPERACILLIN/TAZOBACTAM 3,375 MG in SODIUM CHLORIDE 0.9% 100 ML IV SCH ×3 (01:13→21:35)
[2021-08-17] MEDS: SODIUM CHLORIDE 0.9% 1,000 ML IV SCH ×3 (01:13→18:04)
[2021-08-17 05:10] LABS: Basophils % 0.4 % (0.0-0.8); Eosinophils # 0.1 10*3/uL (0.0-0.87); Eosinophils % 0.8 % (0.00-10.9); Hematocrit 30.2 VOL% (35.7-47.0); Hemoglobin 9.5 GM/DL (12.0-16.0); Immature Granulocytes % 0.4 %; Immature Granulocytes Absolute 0.04 #; Lymphocytes # 1.5 10*3/uL (1.4-4.0); Lymphocytes % 13.5 % (21.3-54.2); Mean Corpuscular HGB Conc 31.5 GM/DL (32-36); Mean Corpuscular Volume 97.7 FL (87-102); Mean Platelet Volume 10.3 FL (9.6-12.0); Monocytes % 10.3 % (1.7-12.7); Neutrophils % 74.6 % (38.7-73.9); Platelet Count 237 T/CUMM (130-400); Red Blood Count 3.09 MC/CUMM (3.8-5.5); Red Cell Distribution Width 14.2 % (9.3-17.3); White Blood Count 10.8 T/CUMM (4-12)
[2021-08-17 05:39] LABS: Calcium 8.4 MG/DL (8.5-10.1); Osmolality,Calculated 284.1 MOS/KG (273-304); Potassium 3.4 MMOL/L (3.5-5.1); Risk Ratio 3.42
[2021-08-17] MEDS: PROPRANOLOL 40 MG TABLET PO SCH (08:56)
[2021-08-17] MEDS: SOTALOL 80 MG TABLET PO SCH (08:57)
[2021-08-17] MEDS: PANTOPRAZOLE 40 MG TABLET PO SCH ×2 (08:57→21:34)
[2021-08-17] MEDS: carBAMazepine 200 MG TABLET PO SCH ×2 (08:57→21:34)
[2021-08-17] MEDS: CALCIUM (CARBONATE) 500 MG TABLET PO SCH (08:57)
[2021-08-17] MEDS ORDERED: LEVOTHYROXINE 200 MCG TABLET PO SCH (09:00)
[2021-08-17] MEDS ORDERED: LIOTHYRONINE 25 MCG TABLET PO SCH (09:00)
[2021-08-17] MEDS: ENOXAPARIN 40 MG/0.4 ML SYRINGE SUBCUT SCH (09:03)
[2021-08-17] MEDS: cycloSPORINE OPH EMUL 1 VIAL BOTH EYES SCH ×2 (09:04→22:01)
[2021-08-17] MEDS ORDERED: POTASSIUM CHLORIDE 20 MEQ TABLET PO ONE (11:00)
[2021-08-17] MEDS ORDERED: MAGNESIUM SULF RIDER 2 GM/50 ML PREMIX IV ONE (11:00)
[2021-08-17] MEDS: ACETAMINOPHEN 325 MG TABLET PO PRN (13:51)
[2021-08-17] MEDS: MENTHOL/ZINC OXIDE OINT 71 GM JAR TOP SCH (15:26)
[2021-08-17] MEDS: NYSTATIN 500,000 UNIT/5 ML UDCUP SWISH/SWAL SCH ×2 (16:19→21:35)
[2021-08-17] MEDS ORDERED: TUBERCULIN SKIN TEST 0.1 ML SYRINGE INTRADERM ONE (16:58)
[2021-08-17] MEDS ORDERED: KETOROLAC 15 MG/1 ML VIAL IV PRN (18:11)
[2021-08-17] MEDS: SIMVASTATIN 40 MG TABLET PO SCH (21:34)
[2021-08-18] MEDS: PIPERACILLIN/TAZOBACTAM 3,375 MG in SODIUM CHLORIDE 0.9% 100 ML IV SCH ×3 (05:20→20:14)
[2021-08-18 05:30] LABS: Basophils % 0.2 % (0.0-0.8); Eosinophils # 0.2 10*3/uL (0.0-0.87); Eosinophils % 1.7 % (0.00-10.9); Hematocrit 26.8 VOL% (35.7-47.0); Hemoglobin 8.4 GM/DL (12.0-16.0); Immature Granulocytes % 0.3 %; Immature Granulocytes Absolute 0.03 #; Lymphocytes # 1.3 10*3/uL (1.4-4.0); Lymphocytes % 14.8 % (21.3-54.2); Mean Corpuscular HGB Conc 31.3 GM/DL (32-36); Mean Corpuscular Volume 97.8 FL (87-102); Mean Platelet Volume 9.9 FL (9.6-12.0); Monocytes % 9.9 % (1.7-12.7); Neutrophils % 73.1 % (38.7-73.9); Platelet Count 206 T/CUMM (130-400); Red Blood Count 2.74 MC/CUMM (3.8-5.5); Red Cell Distribution Width 14.1 % (9.3-17.3)
[2021-08-18] MEDS: LEVOTHYROXINE 50 MCG TABLET PO SCH (05:35)
[2021-08-18 05:49] LABS: Calcium 8.1 MG/DL (8.5-10.1); Osmolality,Calculated 272.8 MOS/KG (273-304); Potassium 3.7 MMOL/L (3.5-5.1)
[2021-08-18] MEDS ORDERED: LACTATED RINGERS 1,000 ML IV SCH (08:00)
[2021-08-18] MEDS: SODIUM CHLORIDE 0.9% 1,000 ML IV SCH ×2 (10:16)
[2021-08-18] MEDS: MENTHOL/ZINC OXIDE OINT 71 GM JAR TOP SCH (10:16)
[2021-08-18] MEDS: SOTALOL 80 MG TABLET PO SCH (10:16)
[2021-08-18] MEDS: PROPRANOLOL 40 MG TABLET PO SCH (10:17)
[2021-08-18] MEDS: carBAMazepine 200 MG TABLET PO SCH ×2 (10:17→20:13)
[2021-08-18] MEDS: cycloSPORINE OPH EMUL 1 VIAL BOTH EYES SCH ×2 (10:17→20:13)
[2021-08-18] MEDS: CALCIUM (CARBONATE) 500 MG TABLET PO SCH (10:17)
[2021-08-18] MEDS: PANTOPRAZOLE 40 MG TABLET PO SCH ×2 (10:17→20:13)
[2021-08-18] MEDS: NYSTATIN 500,000 UNIT/5 ML UDCUP SWISH/SWAL SCH ×4 (10:17→20:13)
[2021-08-18] MEDS ORDERED: METOPROLOL TARTRATE 5 MG/5 ML VIAL IV ONE (13:12)
[2021-08-18] MEDS ORDERED: LIDOCAINE 2% 5 ML VIAL ONE (13:13)
[2021-08-18] MEDS ORDERED: propofoL 200 MG/20 ML VIAL IV ONE (13:13)
[2021-08-18] MEDS: SIMVASTATIN 40 MG TABLET PO SCH (20:13)
[2021-08-19] MEDS: PIPERACILLIN/TAZOBACTAM 3,375 MG in SODIUM CHLORIDE 0.9% 100 ML IV SCH (05:11)
[2021-08-19 05:34] LABS: Basophils % 0.4 % (0.0-0.8); Eosinophils # 0.1 10*3/uL (0.0-0.87); Eosinophils % 1.2 % (0.00-10.9); Hematocrit 27.3 VOL% (35.7-47.0); Hemoglobin 8.8 GM/DL (12.0-16.0); Immature Granulocytes % 0.5 %; Immature Granulocytes Absolute 0.05 #; Lymphocytes # 1.3 10*3/uL (1.4-4.0); Lymphocytes % 13.4 % (21.3-54.2); Mean Corpuscular HGB Conc 32.2 GM/DL (32-36); Mean Corpuscular Volume 95.8 FL (87-102); Mean Platelet Volume 9.9 FL (9.6-12.0); Monocytes % 9.5 % (1.7-12.7); Platelet Count 210 T/CUMM (130-400); Red Blood Count 2.85 MC/CUMM (3.8-5.5); Red Cell Distribution Width 13.6 % (9.3-17.3); White Blood Count 9.6 T/CUMM (4-12)
[2021-08-19] MEDS: LEVOTHYROXINE 50 MCG TABLET PO SCH (05:40)
[2021-08-19 05:48] LABS: Calcium 7.8 MG/DL (8.5-10.1); Osmolality,Calculated 273.5 MOS/KG (273-304); Potassium 3.3 MMOL/L (3.5-5.1)
[2021-08-19] MEDS: carBAMazepine 200 MG TABLET PO SCH (08:21)
[2021-08-19] MEDS: CALCIUM (CARBONATE) 500 MG TABLET PO SCH (08:21)
[2021-08-19] MEDS: SOTALOL 80 MG TABLET PO SCH (08:21)
[2021-08-19] MEDS: PANTOPRAZOLE 40 MG TABLET PO SCH (08:21)
[2021-08-19] MEDS: PROPRANOLOL 40 MG TABLET PO SCH (08:22)
[2021-08-19] MEDS: NYSTATIN 500,000 UNIT/5 ML UDCUP SWISH/SWAL SCH (08:22)
[2021-08-19] MEDS: cycloSPORINE OPH EMUL 1 VIAL BOTH EYES SCH (08:44)
[2021-08-19] MEDS: MENTHOL/ZINC OXIDE OINT 71 GM JAR TOP SCH (08:44)
[2021-08-19] MEDS ORDERED: POTASSIUM CHLORIDE 20 MEQ TABLET PO ONE (10:30)
[2021-08-19 12:17] VITALS: BP 117/52
== END 2021-08-19 13:08 | DRG 562 ==
LOC: EDBD → EDUNIT# → N.ED 19:41 → N.EDINP 08-16 07:42 → SUATTDRO 08-16 07:42 → N.3E 08-16 21:40
PROVIDERS: ADMIT Internal Medicine; ATTEND Internal Medicine